=== PATIENT | male | born 1980 | race Caucasian/White ===

== ENCOUNTER 2017-11-09 13:14 | Inpatient (IN) | payer MEDICAID, OTHER ==
[~2017-11-09] VITALS: Ht 162.6 cm; Wt 102.1 kg
[2017-11-09] MEDS ORDERED: ACETAMINOPHEN 325MG TABLET PO ONE (14:00)
[2017-11-09] MEDS ORDERED: ONDANSETRON HCL 4MG/2ML INJ IV STA (14:03)
[2017-11-09] MEDS ORDERED: MORPHINE SULFATE 4 MG/ML CPJ (NOT FOR IM USE) IV STA (14:03)
[2017-11-09] MEDS ORDERED: VANCOMYCIN 1 G PREMIX 200 ML IV ONE (14:15)
[2017-11-09] MEDS ORDERED: TETANUS, DIPHTHERIA, PERTUSSIS VAC/PF 0.5ML (>7YR OLD) IM ONE (14:15)
[2017-11-09] MEDS ORDERED: SODIUM CHLORIDE 0.9% 1000ML BAG (SEPSIS BOLUS) IV ONE (14:15)
[2017-11-09] MEDS ORDERED: LEVOFLOXACIN 750MG PREMIX 150 ML IV ONE (14:15)
[2017-11-09 14:48] LABS: BASOPHILS % 0.3 % (0.0-2.0); EOSINOPHILS % 0.5 % (0.0-5.0); HEMATOCRIT. 40.5 % (42.0-52.0); HEMOGLOBIN. 13.7 g/dL (14.0-18.0); LYMPHOCYTES % 12.2 % (20.0-50.0); MEAN CORPUSCULAR HEMOGLOBIN 28.6 pg (28.0-32.0); MEAN CORPUSCULAR VOLUME 84.4 fL (80.0-94.0); MEAN PLATELET VOLUME 8.2 fl (7.4-10.4); MONOCYTES % 6.6 % (2.0-8.0); NEUTROPHILS % 80.4 % (40.0-76.0); PLATELET 375 x1000/uL (130-400); RED CELL DISTRIBUTION WIDTH 12.4 % (11.6-14.6)
[2017-11-09 14:51] LABS: CHLORIDE 96 mEq/L (98-107); PARTIAL THROMBOPLASTIN TIME 27.8 sec (23.4-31.0); PROTHROMBIN TIME 10.1 sec (9.1-11.1)
[2017-11-09 16:08] LABS: CLARITY URINE CLEAR (CLEAR); COLOR URINE YELLOW (YELLOW); KETONES URINE NEGATIVE (NEGATIVE); LEUKOCYTE ESTERASE URINE NEGATIVE (NEGATIVE); NITRITE URINE NEGATIVE (NEGATIVE); OCCULT BLOOD URINE NEGATIVE (NEGATIVE); PROTEIN URINE TRACE (NEGATIVE); SPECIFIC GRAVITY URINE 1.021 (1.005-1.030)
[2017-11-09] MEDS ORDERED: DOCUSATE SODIUM 100MG CAPSULE PO PRN (17:45)
[2017-11-09] MEDS ORDERED: LORAZEPAM 2MG/ML CPJ IV PRN (17:45)
[2017-11-09] MEDS ORDERED: LEVOFLOXACIN 500MG PREMIX 100 ML IV SCH (17:45)
[2017-11-09] MEDS ORDERED: IPRATROPIUM/ALBUTEROL 0.5-3(2.5)MG/3ML NEB INH PRN (17:45)
[2017-11-09] MEDS ORDERED: CLONIDINE 0.1MG TABLET PO PRN (17:45)
[2017-11-09] MEDS ORDERED: GUAIFENESIN 200MG/10ML SUGAR FREE UDC PO PRN (17:45)
[2017-11-09] MEDS ORDERED: NA PHOS,M-B/NA PHOS,DI-BA ENEMA 118ML PR PRN (17:45)
[2017-11-09] MEDS ORDERED: ACETAMINOPHEN 325MG TABLET PO PRN (17:45)
[2017-11-09] MEDS ORDERED: MAGNESIUM/ALUMINUM HYDROXIDE/SIMETHICONE 30ML UDC PO PRN (17:45)
[2017-11-09] MEDS ORDERED: DIPHENHYDRAMINE 50MG/ML VIAL IV PRN (17:45)
[2017-11-09] MEDS ORDERED: ONDANSETRON HCL 4MG/2ML INJ IV PRN (17:45)
[2017-11-09] MEDS ORDERED: MORPHINE SULFATE 4 MG/ML CPJ (NOT FOR IM USE) IV PRN (21:15)
[2017-11-09 21:25] VITALS: BP 109/61
[2017-11-09 21:50] VITALS: BP 109/61
[2017-11-09] MEDS ORDERED: ENOXAPARIN 40MG/0.4ML SYR SUBCUT SCH (22:00)
[2017-11-09] MEDS ORDERED: MULT1TAB67 MT (22:08)
[2017-11-09] MEDS ORDERED: REPA1TAB5 MT (22:08)
[2017-11-09] MEDS ORDERED: INSU100I24 SQ (22:08)
[2017-11-09] MEDS ORDERED: GABA-531 MT (22:08)
[2017-11-09] MEDS ORDERED: LISI10TA5 MT (22:08)
[2017-11-09] MEDS ORDERED: FENO145T36 MT (22:08)
[2017-11-09] MEDS ORDERED: DEXTROSE 50% WATER 50ML SYRINGE IV PRN (22:15)
[2017-11-09] MEDS: SODIUM CHLORIDE 0.9% 1,000 ML IV SCH (22:18)
[2017-11-09] MEDS: HYDROCODONE/ACETAMINOPHEN 5/325MG TABLET PO PRN (22:30)
[2017-11-09] MEDS: ENOXAPARIN 30MG/0.3ML SYR SUBCUT SCH (22:58)
[2017-11-09] MEDS: VANCOMYCIN 1500MG in DEXTROSE 5% WATER 250ML IV SCH (22:58)
[2017-11-10] VITALS: BP 136/61
[2017-11-10] MEDS ORDERED: GLV55 MT (00:09)
[2017-11-10 00:21] LABS: CREATINE KINASE 47 IU/L (39-308)
[2017-11-10 00:22] LABS: CREATINE KINASE MB FRACTION < 1.0 ng/mL (0.5-3.6)
[2017-11-10 04:00] VITALS: BP 112/68
[2017-11-10] MEDS: INSULIN LISPRO 100 UNITS/ML SUBCUT SCH ×4 (06:55→20:48)
[2017-11-10 07:20] LABS: BASOPHILS % 0.5 % (0.0-2.0); EOSINOPHILS % 0.9 % (0.0-5.0); HEMOGLOBIN. 11.6 g/dL (14.0-18.0); LYMPHOCYTES % 20.1 % (20.0-50.0); MEAN CORPUSCULAR HEMOGLOBIN 28.9 pg (28.0-32.0); MEAN CORPUSCULAR VOLUME 84.5 fL (80.0-94.0); MEAN PLATELET VOLUME 8.8 fl (7.4-10.4); MONOCYTES % 9.2 % (2.0-8.0); NEUTROPHILS % 69.3 % (40.0-76.0); PLATELET 333 x1000/uL (130-400); RED BLOOD CELL COUNT 4.02 mill/uL (4.7-6.1); RED CELL DISTRIBUTION WIDTH 12.6 % (11.6-14.6)
[2017-11-10 07:21] LABS: CHLORIDE 100 mEq/L (98-107)
[2017-11-10 07:41] LABS: CREATINE KINASE 43 IU/L (39-308)
[2017-11-10 07:43] LABS: CREATINE KINASE MB FRACTION < 1.0 ng/mL (0.5-3.6)
[2017-11-10 08:00] VITALS: BP 121/76
[2017-11-10] MEDS: ENOXAPARIN 30MG/0.3ML SYR SUBCUT SCH ×2 (09:28→20:47)
[2017-11-10] MEDS: ASPIRIN 81MG EC TABLET PO SCH (09:28)
[2017-11-10] MEDS: SODIUM CHLORIDE 0.9% 1,000 ML IV SCH (09:28)
[2017-11-10] MEDS: VANCOMYCIN 1500MG in DEXTROSE 5% WATER 250ML IV SCH ×2 (09:29→20:48)
[2017-11-10] MEDS: HYDROCODONE/ACETAMINOPHEN 5/325MG TABLET PO PRN ×2 (09:38→20:34)
[2017-11-10] MEDS ORDERED: PNEUMOCOCCAL 23-VAL P-SAC VAC 0.5 ML IM ONE (10:00)
[2017-11-10] MEDS ORDERED: INFLUENZA VIRUS VACCINE(AFLURIA) 0.5ML SYR IM ONE (10:00)
[2017-11-10 11:35] VITALS: BP 150/87
[2017-11-10] MEDS: BLOOD SUGAR DIAGNOSTIC STRIP TEST SCH ×4 (11:45→20:40)
[2017-11-10] MEDS: LEVOFLOXACIN 500MG PREMIX 100 ML IV SCH (12:48)
[2017-11-10] MEDS: GABAPENTIN 300MG CAPSULE PO SCH ×2 (14:56→22:06)
[2017-11-10 16:00] VITALS: BP 139/77
[2017-11-10 19:50] VITALS: BP 128/76
[2017-11-11] MEDS: SODIUM CHLORIDE 0.9% 1,000 ML IV SCH ×3 (01:55→15:58)
[2017-11-11 05:59] LABS: CHLORIDE 100 mEq/L (98-107)
[2017-11-11 06:00] VITALS: BP 124/80
[2017-11-11 06:14] LABS: HEMATOCRIT 33.2 % (42.0-52.0); HEMOGLOBIN 11.5 g/dL (14.0-18.0); MEAN CORPUSCULAR HEMOGLOBIN 29.3 pg (28.0-32.0); MEAN CORPUSCULAR VOLUME 84.4 fL (80.0-94.0); PLATELET 358 x1000/uL (130-400); RED BLOOD CELL COUNT 3.93 mill/uL (4.7-6.1); RED CELL DISTRIBUTION WIDTH 12.4 % (11.6-14.6)
[2017-11-11] MEDS: GABAPENTIN 300MG CAPSULE PO SCH ×3 (06:27→22:59)
[2017-11-11] MEDS: BLOOD SUGAR DIAGNOSTIC STRIP TEST SCH ×4 (06:39→21:40)
[2017-11-11] MEDS: INSULIN LISPRO 100 UNITS/ML SUBCUT SCH ×4 (06:44→21:51)
[2017-11-11 08:00] VITALS: BP 118/69
[2017-11-11] MEDS: VANCOMYCIN 1500MG in DEXTROSE 5% WATER 250ML IV SCH ×3 (09:09→23:00)
[2017-11-11] MEDS: ENOXAPARIN 30MG/0.3ML SYR SUBCUT SCH ×2 (09:10→20:52)
[2017-11-11] MEDS: ASPIRIN 81MG EC TABLET PO SCH (09:10)
[2017-11-11] MEDS: LEVOFLOXACIN 500MG PREMIX 100 ML IV SCH (11:24)
[2017-11-11 12:00] VITALS: BP 129/71
[2017-11-11] MEDS: HYDROCODONE/ACETAMINOPHEN 5/325MG TABLET PO PRN (15:58)
[2017-11-11 16:00] VITALS: BP 142/82
[2017-11-11 20:00] VITALS: BP 111/66
[2017-11-12] VITALS: BP 121/65
[2017-11-12 04:00] VITALS: BP 113/65
[2017-11-12] MEDS: GABAPENTIN 300MG CAPSULE PO SCH ×2 (06:04→13:28)
[2017-11-12] MEDS: VANCOMYCIN 1500MG in DEXTROSE 5% WATER 250ML IV SCH (06:05)
[2017-11-12] MEDS: SODIUM CHLORIDE 0.9% 1,000 ML IV SCH (06:21)
[2017-11-12 06:25] LABS: HEMATOCRIT 31.3 % (42.0-52.0); HEMOGLOBIN 10.9 g/dL (14.0-18.0); MEAN CORPUSCULAR HEMOGLOBIN 29.3 pg (28.0-32.0); MEAN CORPUSCULAR VOLUME 84.4 fL (80.0-94.0); PLATELET 340 x1000/uL (130-400); RED BLOOD CELL COUNT 3.71 mill/uL (4.7-6.1); RED CELL DISTRIBUTION WIDTH 12.3 % (11.6-14.6)
[2017-11-12] MEDS: BLOOD SUGAR DIAGNOSTIC STRIP TEST SCH ×3 (06:39→16:45)
[2017-11-12] MEDS: INSULIN LISPRO 100 UNITS/ML SUBCUT SCH ×3 (06:40→18:47)
[2017-11-12 06:52] LABS: CHLORIDE 97 mEq/L (98-107)
[2017-11-12 07:21] LABS: VANCOMYCIN TROUGH 23.5 ug/mL (5.0-10.0)
[2017-11-12 08:00] VITALS: BP 130/78
[2017-11-12] MEDS: ENOXAPARIN 30MG/0.3ML SYR SUBCUT SCH (09:23)
[2017-11-12] MEDS: ASPIRIN 81MG EC TABLET PO SCH (09:23)
[2017-11-12] MEDS: LEVOFLOXACIN 500MG PREMIX 100 ML IV SCH (11:33)
[2017-11-12 12:00] VITALS: BP 118/54
[2017-11-12] MEDS ORDERED: VANCOMYCIN 1250MG in DEXTROSE 5% WATER 250ML IV SCH (14:00)
[2017-11-12 15:27] VITALS: BP 118/54
[2017-11-12 16:00] VITALS: BP 136/65
== END 2017-11-12 19:12 | disposition home health service (06) | DRG 710 ==
LOC: ER 13:14 → 5WST 16:48 → EDBEDREQTM 16:59 → ENRESERV 18:00
PROVIDERS: ADMIT Internal Medicine; ATTEND Internal Medicine
PROC: 0J9Q0ZZ Drainage of Right Foot Subcutaneous Tissue and Fascia, Open Approach (ICD-10-PCS; principal; 2017-11-10)
DX: A41.9 Sepsis, unspecified organism (principal); E87.2 Acidosis; E46 Unspecified protein-calorie malnutrition; E11.42 Type 2 diabetes mellitus with diabetic polyneuropathy; E87.1 Hypo-osmolality and hyponatremia; L03.115 Cellulitis of right lower limb; L02.611 Cutaneous abscess of right foot; I10 Essential (primary) hypertension; Z68.38 Body mass index [BMI] 38.0-38.9, adult
CPT/HCPCS: 36415; 71045; 73630; 73721; 80048; 80053; 80202; 81003; 82550; 82553; 82962; 83036; 83605; 84484; 85025; 85027; 85610; 85730; 87040; 87070; 87077; 87086; 87205; 90471; 90686; 90715; 90732; 93005; 96365; 96375; 97022; 97162; 99291; J1650; J1815; J1956; J2270; J2405; J3370; J7030; J7060